=== PATIENT | male | born 1965 | race Caucasian/White ===

== ENCOUNTER 2019-02-05 04:45 | Inpatient (IN) ==
--- NOTE | 2019-01-18 15:09 | PAT Medication Instructions ---
Medication Instructions Date of Service January 18, 2019 Home Medications allopurinol 100 mg PO QAM amlodipine 10 mg PO QAM cholecalciferol (vitamin D3) 1,000 unit PO QAM ibuprofen 800 mg PO BID PRN lisinopril-hydrochlorothiazide 1 tab PO QAM ASK your surgeon for instructions ibuprofen 800 mg PO BID PRN DO NOT take the morning of surgery cholecalciferol (vitamin D3) 1,000 unit PO QAM lisinopril-hydrochlorothiazide 1 tab PO QAM Take morning of surgery With a small sip of water, OTHERWISE NOTHING TO EAT OR DRINK AFTER MIDNIGHT: allopurinol 100 mg PO QAM amlodipine 10 mg PO QAM Other Notes If you have any questions please call us at [phone] or [phone] or [phone] or [phone]
--- NOTE | 2019-01-22 09:53 | Anesthesiology Consultation ---
Date of Service January 22, 2019 Assessment & Plan (1) Encounter for pre-operative examination: Chart Review Chart Review: Acceptable Risk for Surgery and Patient seen in Pre Admission Testing Consults Requested none Teaching & Discussion Pre-Anesthesia Teaching/Discussion Notes: Instructed NPO after midnight before surgery, except medications with 15 cc of water. Medication instructions provided according to the PAT guidelines. History Surgery Operation Date: 02/05/19 09:20 Proposed Procedures p Right Anterior versus Lateral Total Hip Replacement - Jason Pollack DO Height/Weight Height: 5 ft 10 in Weight: 141.5 kg Allergies Allergy/AdvReac Type Severity Reaction Status Date / Time No Known Allergies Allergy Verified 01/18/19 12:38 Medications Home Medications Medication Instructions Recorded Confirmed Last Taken allopurinol 100 mg PO QAM 01/18/19 01/18/19 Unknown amlodipine 10 mg PO QAM 01/18/19 01/18/19 Unknown cholecalciferol (vitamin D3) 1,000 unit PO QAM 01/18/19 01/18/19 Unknown [Vitamin D3] ibuprofen 800 mg PO BID PRN 01/18/19 01/18/19 Unknown lisinopril-hydrochlorothiazide 1 tab PO QAM 01/18/19 01/18/19 Unknown Past Medical History Medical History Chronic back pain Depression HX Gout Hypertension Osteoarthritis Sleep apnea NON-COMPLIANT WITH CPAP Exercise / Class Metabolic Activity II 4-5 Yardwork/Stairs/Walk up hill (Walks daily. Able to climb FOS easily. Sukhwinder es CP or SOB. ) Past Family History Family History Mother Family history of diabetes mellitus Grandmother (Maternal) Family history of diabetes mellitus Uncle Family history of diabetes mellitus Past Surgical History Surgical History History of back surgery LUMBAR Past Anesthesia History No Hx of Anesthesia Complications and No Family Hx of Anesthesia Complications History of PONV No Hx of PONV and No Hx of Motion Sickness Social History Smoking Status: Never smoker Do You Dip or Chew Tobacco: No Hx Alcohol Use: No Hx Substance Use: No substance use type: does not use Review of Systems Patient denies chest pain, shortness of breath, dyspnea on exertion, joint pain, reflux, cough, wheezing, palpitations. + Joint Pain (Back, Knees, Hip) Physical Exam Vital Signs BP: 118/76 P: 62 R: 16 T: 98.4 SPO2: 97% on RA Constitutional + morbidly obese ENMT Thyromental Distance: > or= 3.5 Finger Breadths (4+) Mallampati Class: III Neck + thick neck and + facial hair (Advised); neck extension not limited Respiratory normal respiratory effort Auscultation: lungs clear to auscultation bilaterally Cardiovascular Rate/Rhythm: regular rate and regular rhythm Heart Sounds: no murmur Vessels: no carotid bruit Neurologic moves all extremities Psychiatric Orientation: alert and oriented x 3 Testing Laboratory Results 01/22/19 10:26 01/22/19 10:26 01/22/19 01/22/19 10:26 10:26 PT 10.0 INR 1.0 APTT 29.1 Blood Type O Positive Antibody Screen NEGATIVE Electrocardiogram Date: 01/22/19 Findings: + NSR @ (60) and + no change from (08/16/14) Chest X-Ray Date: 01/22/19 Findings: + NAD FINDINGS: Cardiomediastinal silhouette normal. Lungs and pleural spaces clear. Degenerative changes of the thoracic spine. Exaggerated thoracic kyphosis. Upper abdomen normal. IMPRESSION: 1. No acute cardiopulmonary disease. Stress Test Date: 08/16/14 Type: DSE Findings: + WNL Resting EF: 60-65% Resting LV Function: normal Resting RWMA: + none Valvular Disease: no significant valvular disease Normal pharmacologic stress echocardiogram No echocardiographic or ECG evidence of myocardial ischemia having achieved heart rate adequate for diagnostic purposes.
--- NOTE | 2019-01-22 11:14 | XRay Report ---
XR chest Pre-admission PA/Lat CLINICAL HISTORY: 53 years-old Male presenting with preoperative assessment. TECHNIQUE: PA and lateral views of the chest were obtained. COMPARISON: 08/15/2014. FINDINGS: Cardiomediastinal silhouette normal. Lungs and pleural spaces clear. Degenerative changes of the thor acic spine. Exaggerated thoracic kyphosis. Upper abdomen normal. IMPRESSION: 1. No acute cardiopulmonary disease. Electronically signed by: Elias Dinero M.D. 01/22/2019 11:13 AM
[2019-01-22 11:31] LABS: Basophils # (auto) 0.03 K/uL (0-0.2); Basophils % (auto) 0.6 %; Eosinophils # (auto) 0.09 K/uL (0-0.5); Eosinophils % (auto) 1.7 %; Hematocrit (blood only) 41.9 % (42-52); Hemoglobin 14.2 g/dL (14.0-18.0); Immature Granulocytes # (auto) 0.01 K/uL (0.00-0.02); Immature Granulocytes % (auto) 0.2 %; Lymphocytes # (auto) 1.57 K/uL (1.2-3.4); Lymphocytes % (auto) 29.5 %; Mean Corpuscular Hgb Conc 33.9 g/dL (32-36); Mean Corpuscular Volume 91.9 fL (80-100); Mean Platelet Volume 11.9 fL (7.4-10.4); Monocytes # (auto) 0.47 K/uL (0.11-0.59); Monocytes % (auto) 8.8 %; Neutrophils # (auto) 3.15 K/uL (1.4-6.5); Neutrophils % (auto) 59.2 %; Platelet Count 162 K/uL (130-400); RDW Coefficient of Variation 13.4 % (11.5-14.5); RDW Standard Deviation 44.5 fL (36.4-46.3); Red Blood Count 4.56 M/uL (4.7-6.1); White Blood Count 5.32 K/uL (4.8-10.8)
[2019-01-22 11:42] LABS: BUN Creatinine Ratio 19.5 (10-20); Calcium 9.1 mg/dl (8.5-10.1); Creatinine Clr Calc Pharmacy 130.5 ml/min; Est GFR (African American) 107.6; Est GFR (Non-African American) 92.8; Potassium 3.8 mmol/L (3.5-5.1)
[2019-01-22 11:51] LABS: Partial Thromboplastin Ratio 1.1; Partial Thromboplastin Time 29.1 Seconds (21.0-31.0)
--- NOTE | 2019-01-30 15:07 | History & Physical Report ---
Date of Service January 30, 2019 Assessment & Plan (1) Osteoarthritis of right hip: We will proceed with a right anterior total hip arthroplasty. Postoperatively he will be started on aspirin for DVT prophylaxis. He will be kept overnight in the hospital for postop medical management. He plans to use energy physical therapy upon discharge. Present on Admission?: Yes History of Present Illness Chief Complaint: Primary osteoarthritis of the right hip Primary Care Provider: Yolande Heaton MD Rik is a pleasant 53-year-old male who is been dealing with chronic increasing right hip and groin pain. He has been following our spine surgeon. X-rays and clinical examination of his right hip have been diagnostic for primary osteoarthritis of his right hip. After failing conservative treatment, he has elected proceed with a right total hip arthroplasty. Allergies Allergy/AdvReac Type Severity Reaction Status Date / Time No Known Allergies Allergy Verified 01/18/19 12:38 Home Medications Home Medications Medication Instructions Recorded Confirmed Type allopurinol 100 mg PO QAM 01/18/19 01/18/19 History amlodipine 10 mg PO QAM 01/18/19 01/18/19 History cholecalciferol (vitamin D3) 1,000 unit PO QAM 01/18/19 01/18/19 History [Vitamin D3] ibuprofen 800 mg PO BID PRN 01/18/19 01/18/19 History lisinopril-hydrochlorothiazide 1 tab PO QAM 01/18/19 01/18/19 History Past Med/Surg History Medical History Chronic back pain Depression HX Gout Hypertension Osteoarthritis Sleep apnea NON-COMPLIANT WITH CPAP Surgical History History of back surgery LUMBAR Family History Mother Family history of diabetes mellitus Grandmother (Maternal) Family history of diabetes mellitus Uncle Family history of diabetes mellitus Social History Preferred Language: Macedonian Communication Ability: Effective Sole Filler Required: No Beliefs That Will Affect Care: None Current Living Situation: Spouse and Family Other Information That Helps Us Care for You: No Feels Safe at Home: Yes Safety Concerns: Feels Safe At This Time Smoking Status: Never smoker Do You Dip or Chew Tobacco: No Second Hand Exposure: No Hx Alcohol Use: No Hx Substance Use: No Review of Systems All systems reviewed & are unremarkable except as noted in HPI & below Physical Exam Constitutional: WD/WN, vitals as above Eyes: PERRL, conjunctivae normal, anicteric sclerae ENMT: external ear and nose normal, oropharynx normal Neck: trachea midline, no thyromegaly Respiratory: normal respiratory effort Cardiovascular: RRR, no murmur, no edema Gastrointestinal (Abdomen): normal bowel sounds, soft, nontender, no hepatosplenomegaly Musculoskeletal: Physical examination of the right hip reveals decreased range of motion with flexion, internal and external rotation. There is significant groin pain with forced internal rotation of the hip his leg lengths are essentially equal. Psychiatric: A+Ox3, euthymic affect Results & Data Diagnostic Findings Radiographs of the right hip and pelvis demonstrate advanced osteoarthritis with joint space narrowing osteophyte formation and [id number] articulation.
[2019-02-05] MEDS ORDERED: ROPIVACAINE 0.5% HCL/PF 150 MG, BUPIVACAINE 0.5% MPF 30 ML, EPINEPHrine 30MG/30ML (OR U... INFIL SCH (06:00)
[2019-02-05] MEDS ORDERED: LR 60ML/HR IV SCH (06:00)
[2019-02-05] MEDS ORDERED: LR 500ML BOLUS, THEN 15ML/HR IV SCH (06:00)
[2019-02-05] MEDS ORDERED: TRANEXAMIC ACID 1,000 MG **IV Pre-op IV SCH (06:00)
[2019-02-05] MEDS ORDERED: FAMOTIDINE 20 MG TAB PO SCH (06:00)
[2019-02-05] MEDS ORDERED: ACETAMINOPHEN 500 MG TAB PO SCH (06:00)
[2019-02-05] MEDS ORDERED: GABAPENTIN 300 MG x 3 PO SCH (06:00)
[2019-02-05] MEDS ORDERED: CEFAZOLIN 3000MG 65 ML IV SCH (06:00)
--- NOTE | 2019-02-05 06:25 | History & Physical Bridge Note ---
Date of Service February 05, 2019 History & Physical Bridge Note I have examined the patient, reviewed the History & Physical and in the interval since the performance of the History & Physical I have noted the following changes of clinical significance: no changes noted
[2019-02-05] MEDS ORDERED: TRANEXAMIC ACID 1,000 MG **IV Intra-op IV SCH (06:30)
[2019-02-05] MEDS ORDERED: ORTHO JOINT ANESTHETIC ONE (06:32)
[2019-02-05] MEDS ORDERED: POVIDONE-IODINE OP SOLN 30 ML BTL ONE (06:33)
[2019-02-05] MEDS ORDERED: PROPOFOL IV EMULSION 10 MG/ML 20 ML VIAL IV ONE ×6 (06:35→08:49)
[2019-02-05] MEDS ORDERED: fentaNYL citrate 100 MCG/2 ML VIAL ONE (06:35)
[2019-02-05] MEDS ORDERED: MIDAZOLAM HCL 1 MG/ML 2ML VIAL ONE ×2 (06:35→08:17)
[2019-02-05] MEDS ORDERED: BUPIVACAINE 0.5 % 5 MG/1 ML PF 10ML VIAL ONE (06:38)
[2019-02-05] MEDS ORDERED: ePHEDrine sulfate 50 MG/ML AMP IV PRN (07:03)
[2019-02-05] MEDS ORDERED: ONDANSETRON INJ 2 MG/ML 2 ML VIAL IV PRN ×2 (07:03→09:47)
[2019-02-05] MEDS ORDERED: fentaNYL citrate 100 MCG/2 ML VIAL IV PRN (07:03)
[2019-02-05] MEDS ORDERED: ATROPINE SULFATE 0.1 MG/ML 10ML SYR IV PRN (07:03)
[2019-02-05] MEDS ORDERED: KETAMINE HCL INJ 50 MG/ML 10 ML VIAL ONE (08:18)
--- NOTE | 2019-02-05 08:52 | XRay Report ---
XR hip RT 1V CLINICAL HISTORY: 53 years-old Male presenting with LAT XRAY OF NEW PROTHESIS-RT. TECHNIQUE: Crosstable lateral view of the right hip was obtained. COMPARISON: 12/27/2018. FINDINGS: Postsurgical changes of total right hip arthroplasty. Image quality is degraded the absence of a grid and patient body habitus. No periprosthetic fracture is apparent. Surgical material evident. IMPRESSION: Limited evaluation of the total right hip arthroplasty without gross malalignment or periprosthetic f racture. Follow-up is indicated. Electronically signed by: Elias Dinero M.D. 02/05/2019 8:49 AM
--- NOTE | 2019-02-05 08:57 | Operative Report ---
Post Operative Report Pre & Post Diagnosis Operation Date: 02/05/19 07:00 Pre-Op Diagnosis: Right Hip Degenerative Joint Disease Post-Op Diagnosis: Right Hip Degenerative Joint Disease Procedure Operation Date: 02/05/19 07:00 Actual Procedures p Right Total Hip Arthroplasty, Uncemented(Right) - Jason Pollack DO Surgeon Jason Pollack DO Wireless Sales Consultant Jason Henao PAC Estimated Blood Loss 300 Findings Consistent with Post-Op Diagnosis Specimens Right humeral head Complications none Disposition Disposition: Recovery Room Indications Rik is a pleasant 53-year-old male who is been dealing with chronic increasing right hip and groin pain. X-rays and clinical examination were diagnostic for primary osteoarthritis of the right hip. After failing conservative treatment, he elected to proceed with a right total hip arthroplasty. Description of Procedure Implants used Biomet Taperloc total hip arthroplasty system with a size 18 standard offset Taperloc stem, a 54 mm G7 cup with a 25mm screw, an E1 polyethylene liner, a 40 mm ceramic head with a +0 neck. Patient arrived at the hospital for the above procedure. They were seen in the preoperative holding area and the operative extremity was identified and signed. They were given a spinal anesthetic. They were given a preoperative antibiotic and TXA. They were taken back To the operating room and laid on the table in the supine position. He was then placed in the a lateral decubitus position. A timeout was done and the patient in upper extremities properly identified. A lateral approach was used. Dissection was taken down through the fascia and the IT band was split longitudinally. The abductors were exposed. The bursa was excised. The anterior third of the abductors was lifted off of the greater trochanter. The capsule was then excised. The acetabulum was then easily exposed. Time was spent doing a complete circumferential labral release. Sequential reaming of the acetabulum up to a size 53 reamer was done. A Biomet 54 mm G7 cup was then impacted into place. A single 25 mm screw was placed. The E1 polyethylene liner was then snapped into place. Surrounding soft tissues were then injected with 100 cc of an orthopedic pain control cocktail. The proximal femur was then exposed. Sequential broaching up to a size 18 broach was done. Off that broach a size 40 head with a +0 neck was trialed. The hip was reduced and a single flat plate x-ray showed anatomic alignment of the implants in acceptable length. The hip was then dislocated and the broach was removed. The final size 18 standard offset Taperloc stem was then impacted into place. A ceramic 40 mm head with a +0 neck was then impacted into place in the hip was reduced. The hip was brought through full range of motion felt to be stable the leg lengths appear to be adequate. A dilute betadyne lavage was then done for 3 minutes. The joint was then irrigated with normal saline solution. The abductors were then tenodesed back to the greater trochanter with transosseous FiberWire sutures and side to side sutures. The IT band was closed with #1 PDS suture. Skin was closed with 2-0 Vicryl, manolo, and a Rachael VAC dressing. The patient was then transferred to a hospital bed and taken to the post anesthesia care unit in stable condition. They tolerated the procedure well. I attest to the content of the Intraoperative Record and any orders documented therein. Any exceptions are noted below.
[2019-02-05] MEDS ORDERED: METOCLOPRAMIDE HCL INJ 5 MG/ML 2 ML VIAL IV PRN (09:47)
[2019-02-05] MEDS ORDERED: NALOXONE HCL 0.4 MG/1 ML VIAL/CARP IV PRN (09:47)
[2019-02-05] MEDS ORDERED: MAGNESIUM HYDROXIDE SUSP 30 ML UDC PO PRN (09:47)
[2019-02-05] MEDS ORDERED: HYDROmorphone INJ 0.5 MG/0.5 ML SYR IV PRN (09:47)
[2019-02-05] MEDS ORDERED: BISACODYL 10 MG SUPP PR PRN (09:47)
--- NOTE | 2019-02-05 09:57 | XRay Report ---
XR hip 1V RT w pelvis CLINICAL HISTORY: Postoperative evaluation. COMPARISON: Right hip radiographs December 27, 2018. FINDINGS: Alignment of the total right hip arthroplasty is anatomic. There is an acetabular screw an d skin manolo. There is no periprosthetic fracture or unexpected radiopaque foreign body. IMPRESSION: Expected findings following total right hip arthroplasty. Electronically signed by: Jean Marie Weaver M.D. 02/05/2019 9:56 AM
[2019-02-05] MEDS: SODIUM CHLORIDE 0.9% 1000ML 1,000 ML IV SCH ×2 (10:15→21:09)
--- NOTE | 2019-02-05 10:23 | Anesthesiology Progress Note ---
Date of Service February 05, 2019 Anesthesia Post Procedure Vital Signs Vital Signs: Temp Pulse Pulse Pulse Resp BP BP 02/05/19 09:55 97.9 F 54 L 20 104/71 02/05/19 09:45 97.0 F L 54 L 18 107/71 02/05/19 09:35 97.0 F L 56 L 18 117/73 02/05/19 09:25 55 L 18 99/63 L 02/05/19 09:15 54 L 18 95/70 L 02/05/19 09:08 96.8 F L 59 L 18 112/75 02/05/19 05:26 98.1 F 67 18 124/85 Pulse Ox 02/05/19 09:55 99 02/05/19 09:45 100 02/05/19 09:35 100 02/05/19 09:25 100 02/05/19 09:15 100 02/05/19 09:08 99 02/05/19 05:26 97 Pain Intensity Right Hip: Pain Intensity: 6 Transfer of Care Handoff Completed per policy Notes Mental Status: alert / awake / arousable and participated in evaluation Patient Amnestic to Procedure: Yes Nausea / Vomiting: adequately controlled Pain: adequately controlled Airway Patency, RR, SpO2: stable & adequate BP & HR: stable & adequate Hydration State: stable & adequate Neuraxial Anesthesia: was administered and sensory block is resolving Anesthetic Complications: no major complications apparent and Pt Satisfied with anesthetic care
[2019-02-05] MEDS: KETOROLAC 30 MG/ML VIAL IV SCH ×2 (11:53→17:17)
[2019-02-05] MEDS: ACETAMINOPHEN 500 MG TAB PO SCH ×2 (14:12→21:07)
[2019-02-05] MEDS: CEFAZOLIN 2000MG 2,000 MG/15 ML SYR IV SCH ×2 (14:12→22:16)
[2019-02-05] MEDS: OXYCODONE HCL IR 5 MG TAB (IMMEDIATE RELEASE) PO PRN ×2 (15:20→22:16)
[2019-02-05] MEDS: ASPIRIN 81 MG ECTAB PO SCH (20:19)
[2019-02-05] MEDS: DOCUSATE SODIUM 100 MG CAP PO SCH (20:19)
[2019-02-05] MEDS: SENNA 8.6 MG TAB PO SCH (20:19)
[2019-02-06] MEDS: KETOROLAC 30 MG/ML VIAL IV SCH ×5 (00:28→23:56)
[2019-02-06] MEDS: OXYCODONE HCL IR 5 MG TAB (IMMEDIATE RELEASE) PO PRN ×5 (03:39→22:37)
[2019-02-06] MEDS: ACETAMINOPHEN 500 MG TAB PO SCH ×3 (05:53→21:39)
[2019-02-06] MEDS: SODIUM CHLORIDE 0.9% 1000ML 1,000 ML IV SCH (05:53)
[2019-02-06 06:35] LABS: Basophils # (auto) 0.01 K/uL (0-0.2); Basophils % (auto) 0.1 %; Eosinophils # (auto) 0.09 K/uL (0-0.5); Eosinophils % (auto) 0.8 %; Hematocrit (blood only) 33.8 % (42-52); Hemoglobin 11.4 g/dL (14.0-18.0); Immature Granulocytes # (auto) 0.03 K/uL (0.00-0.02); Immature Granulocytes % (auto) 0.3 %; Lymphocytes # (auto) 1.81 K/uL (1.2-3.4); Lymphocytes % (auto) 16.9 %; Mean Corpuscular Hgb Conc 33.7 g/dL (32-36); Mean Corpuscular Volume 92.1 fL (80-100); Mean Platelet Volume 11.3 fL (7.4-10.4); Monocytes # (auto) 1.21 K/uL (0.11-0.59); Monocytes % (auto) 11.3 %; Neutrophils # (auto) 7.57 K/uL (1.4-6.5); Neutrophils % (auto) 70.6 %; Platelet Count 142 K/uL (130-400); RDW Coefficient of Variation 13.3 % (11.5-14.5); RDW Standard Deviation 44.6 fL (36.4-46.3); Red Blood Count 3.67 M/uL (4.7-6.1); White Blood Count 10.72 K/uL (4.8-10.8)
[2019-02-06 07:10] LABS: BUN Creatinine Ratio 17.3 (10-20); Calcium 7.9 mg/dl (8.5-10.1); Creatinine Clr Calc Pharmacy 129.2 ml/min; Est GFR (African American) 107.6; Est GFR (Non-African American) 92.8; Potassium 3.6 mmol/L (3.5-5.1)
--- NOTE | 2019-02-06 07:18 | Orthopedic Progress Note ---
Date of Service February 06, 2019 Assessment & Plan (1) Osteoarthritis of right hip: Overall he is doing fairly well. He is having a lot of soreness in his hip but is controlled with pain medication. He is on aspirin for DVT prophylaxis. He can be up and ambulating with physical therapy today. We will plan on discharging him to home tomorrow. Present on Admission?: Yes Subjective Rik was seen and examined at bedside this morning. Overall he is doing fairly well. He is having a lot of soreness in his right hip. He was able to ambulate around the room yesterday. He was able to get a little bit of sleep last night. Otherwise has no complaints. Physical Exam Musculoskeletal: On physical examination of the right hip, the Rachael VAC dressing is to suction. His ligaments are equal. He has active dorsiflexion and plantarflexion of his right ankle. Results & Data Vital Signs (Past 12 Hours) Vital Signs Temp Pulse Pulse Resp BP Pulse Ox 02/06/19 04:37 36.9 C 57 L 18 121/75 98 02/05/19 23:05 36.7 C 61 18 123/79 98 02/05/19 19:35 37.1 C 66 18 121/78 97 Laboratory Results H & H 01/22/19 02/06/19 Range/Units 10:26 06:20 Hgb 14.2 11.4 L (14.0-18.0) g/dL Hct 41.9 L 33.8 L (42-52) % Coagulation 01/22/19 Range/Units 10:26 INR 1.0 (0.9-1.1) Diagnostic Findings Postoperative x-rays of the right hip show the prosthesis to be in anatomic alignment without any evidence of fracture, dislocation, or loosening.
[2019-02-06] MEDS: ALLOPURINOL 100 MG TAB PO SCH (07:28)
[2019-02-06] MEDS: AMLODIPINE BESYLATE 5 MG TAB PO SCH (07:28)
[2019-02-06] MEDS: LISINOPRIL/HCTZ 20/25MG 1 TAB PO SCH (07:28)
[2019-02-06] MEDS: MULTIVITAMIN TAB PO SCH (07:28)
[2019-02-06] MEDS: DOCUSATE SODIUM 100 MG CAP PO SCH ×2 (07:29→20:28)
[2019-02-06] MEDS: ASPIRIN 81 MG ECTAB PO SCH ×2 (07:29→20:28)
--- NOTE | 2019-02-06 10:19 | Anesthesiology Progress Note ---
Date of Service February 06, 2019 Anesthesia Post Procedure Vital Signs Vital Signs: Temp Pulse Pulse Resp BP Pulse Ox 02/06/19 07:16 36.7 C 54 L 20 116/76 98 02/06/19 04:37 36.9 C 57 L 18 121/75 98 02/05/19 23:05 36.7 C 61 18 123/79 98 02/05/19 19:35 37.1 C 66 18 121/78 97 02/05/19 12:51 54 L 18 115/82 99 02/05/19 11:57 34.9 C L 53 L 16 111/75 99 02/05/19 10:55 36.5 C 57 L 18 114/77 99 02/05/19 10:25 34.9 C L 53 L 20 110/72 100 Notes Mental Status: alert / awake / arousable and participated in evaluation Nausea / Vomiting: adequately controlled Pain: adequately controlled Airway Patency, RR, SpO2: stable & adequate BP & HR: stable & adequate Hydration State: stable & adequate Neuraxial Anesthesia: sensory block resolved
[2019-02-06] MEDS: SENNA 8.6 MG TAB PO SCH (20:28)
[2019-02-07] MEDS: KETOROLAC 30 MG/ML VIAL IV SCH (06:10)
[2019-02-07] MEDS: ACETAMINOPHEN 500 MG TAB PO SCH (06:10)
--- NOTE | 2019-02-07 06:28 | Orthopedic Progress Note ---
Date of Service February 07, 2019 Assessment & Plan (1) Osteoarthritis of right hip: Overall he is doing fairly well. He is on aspirin for DVT prophylaxis. He is been ambulating well with physical therapy. He can be discharged home later this morning. He plans to have [facility] therapy come by his house. He will follow-up with orthopedics in 2 weeks. Present on Admission?: Yes Subjective Rik was seen and examined at bedside this morning. Overall is doing fairly well. He took 5 laps around the nurses station yesterday. Is been working well with physical therapy. He has been having a lot of pain and soreness in his right hip. He has no other complaints. Physical Exam Musculoskeletal: On physical examination of the right hip, the Rachael VAC dressings to suction. His leg lengths are equal. He is active dorsiflexion plantarflexion of his right ankle. Sensation is intact throughout. Results & Data Vital Signs (Past 12 Hours) Vital Signs Temp Pulse Resp BP BP Pulse Ox 02/07/19 06:20 37.0 C 60 16 102/70 97 02/06/19 23:06 37.4 C 62 16 101/68 96
--- NOTE | 2019-02-07 06:29 | Discharge Summary ---
Date of Service February 07, 2019 Admission HPI Per Admitting Provider Rik is a pleasant 53-year-old male who is been dealing with chronic increasing right hip and groin pain. He has been following our spine surgeon. X-rays and clinical examination of his right hip have been diagnostic for primary osteoarthritis of his right hip. After failing conservative treatment, he has elected proceed with a right total hip arthroplasty. Specialty Data Orthopedic H & H 01/22/19 02/06/19 Range/Units 10:26 06:20 Hgb 14.2 11.4 L (14.0-18.0) g/dL Hct 41.9 L 33.8 L (42-52) % Coagulation 01/22/19 Range/Units 10:26 INR 1.0 (0.9-1.1) Discharge Data Consultations 02/06/19 08:00 Consult Case Management - Discharge Planning Routine Procedures Performed Operation Date: 02/05/19 07:00 Actual Procedures p Right Total Hip Arthroplasty, Uncemented(Right) - Jason Pollack DO Hospital Course (1) Osteoarthritis of right hip: On February 05, 2019 when arrived at [facility] and underwent a right total hip arthroplasty without complication. He had a spinal anesthetic. Postoperatively he was started on aspirin for DVT prophylaxis and discharged to general orthopedic floors. His hospital course was uneventful. On postop day #1 his H&H was stable and his pain was well controlled. He was able to ambulate well with physical therapy. On postop day #2 we continues to do fairly well. He was having soreness in his hip but it was controlled with the oral oxycodone. He was seen once again by physical therapy and then discharged home. He will get [facility] physical therapy at home. He will follow-up with orthopedics in 2 weeks. Discharge Instructions Home Medications Medication Instructions Recorded Confirmed allopurinol 100 mg PO QAM 01/18/19 02/05/19 amlodipine 10 mg PO QAM 01/18/19 02/05/19 cholecalciferol (vitamin D3) 1,000 unit PO QAM 01/18/19 02/05/19 [Vitamin D3] ibuprofen 800 mg PO BID PRN 01/18/19 02/05/19 lisinopril-hydrochlorothiazide 1 tab PO QAM 01/18/19 02/05/19 Previous Rx's Medication Instructions Recorded aspirin [Ecotrin Low Strength] 81 mg PO BID #84 tab 02/06/19 oxycodone 5 - 10 mg PO Q4H PRN #40 tab 02/06/19
[2019-02-07] MEDS: LISINOPRIL/HCTZ 20/25MG 1 TAB PO SCH (07:04)
[2019-02-07] MEDS: DOCUSATE SODIUM 100 MG CAP PO SCH (07:04)
[2019-02-07] MEDS: MULTIVITAMIN TAB PO SCH (07:04)
[2019-02-07] MEDS: ALLOPURINOL 100 MG TAB PO SCH (07:04)
[2019-02-07] MEDS: AMLODIPINE BESYLATE 5 MG TAB PO SCH (07:04)
[2019-02-07] MEDS: ASPIRIN 81 MG ECTAB PO SCH (07:04)
[2019-02-07] MEDS: OXYCODONE HCL IR 5 MG TAB (IMMEDIATE RELEASE) PO PRN (10:43)
== END 2019-02-07 11:12 | disposition home health service (06) | DRG 470 ==
LOC: ASU 04:45 → 3E 09:08